=== PATIENT | female | born 1940 | race Caucasian/White ===

== ENCOUNTER 2016-09-14 10:21 | Inpatient (IN) | payer MEDICARE, OTHER ==
[~2016-09-14] VITALS: Ht 162.6 cm; Wt 49.0 kg
--- NOTE | 2016-09-15 14:09 | CO ---
ADMIT: 09/14/2016 RM/LOC: 509 [facility] MR#: [id number] [address] [address] JESSENIA MCDOWELL [address] [place] [address] Consultation SEX: F AGE: 75 : 1940 DATE OF CONSULTATION: 09/14/2016 ATTENDING PHYSICIAN: Julian Malone CONSULTING PHYSICIAN: Zan Diggs MD CHIEF COMPLAINT: Left hip pain. HISTORY OF PRESENT ILLNESS: The patient is a 75-year-old white female, who fell the day when she was moving a chair for , she landed on her left side. She was brought in the emergency room complaining of left hip pain. X- rays showed a left displaced intertrochanteric hip fracture. Recently, the patient had been scheduled for removal of hardware from her right shoulder. This was scheduled to be done, I believe, in a week. PHYSICAL EXAMINATION: Shows the patient's left lower extremity is short and externally rotated. Pain in the groin with toggling of the lower extremity on that side. It appears intact. She is not having really much pain at all. No right lower extremity pain or bilateral upper extremity pain. She does have a well-healed incision over the lateral shoulder. I can palpate the hardware which feel like Candelario rods. IMAGING DATA: X-rays show a displaced intertrochanteric hip fracture with osteoporosis. ASSESSMENT: Left intertrochanteric hip fracture and right shoulder retained hardware. At this point in time, we will plan left hip trochanteric femoral nailing and right shoulder hardware removal. I will look at her x-rays in the office to determine what hardware needs to be removed. She understands this, she understands the risks and benefits of the surgical intervention and desires to proceed. Zan Diggs MD/ sarah JOB #: [id number] CC: Julian Malone, Attending Physician Julian Malone, Family Physician
--- NOTE | 2016-09-17 16:31 | ER ---
ADMIT: 09/14/2016 RM/LOC: 509 [facility] MR#: [id number] [address] [address] JESSENIA MCDOWELL [address] [place] [address] Emergency Room Report SEX: F AGE: 75 : 1940 DATE: 09/14/2016 For chief complaint, history of present illness, past medical history, medications, allergies, review of systems, including physical exam, please my T-sheet. INTERIM HISTORY: The patient is a 75-year-old white female, who presents via 911 after mechanical fall at home. She tripped while she was moving a chair to help her get his a walker by this morning and landed directly on her left hip. She denies any other injuries. The patient has a longstanding history of coagulopathy with multiple stents placed both including her carotids, her femorals, and she has been anticoagulated on Plavix. She is scheduled for a shoulder surgery next week by Dr. Mcghee to get some pins removed, so she has coincidently been off her Plavix for the last week. She does smoke at home, approximately 2 cigarettes a day. She has a longstanding history of COPD. Otherwise, she is not oxygen dependent at home. PHYSICAL EXAMINATION: CONSTITUTIONAL: Otherwise, her constitutional is thin, frail, elderly. VITAL SIGNS: Vital signs are stable. LUNGS: Diminished. There is some faint wheezes throughout, which I believe are probably chronic for her. ABDOMEN: Thin. EXTREMITIES: She has a shortened and externally rotated left hip with pain to palpation. No other injuries. LABORATORY AND IMAGING DATA: Laboratory evaluation is pending with routine preoperative stuff. Hip does show a left intertrochanteric fracture with approximately 90 degrees of angulation. Chest x-ray pending. EKG is pending. Routine labs are pending. The patient did receive morphine en-route by EMS, and reported that she is kind of pain free as long she does not move. I spoke with Dr. Goodrich who is on-call for Dr. Malone, who gave medicine orders. We will have Cardiology to clear her for surgery. I spoke with Dr. Diggs who is on for Ortho and he will plan to repair this tomorrow after she has been ADMIT: 09/14/2016 RM/LOC: 509 [facility] MR#: [id number] [address] [address] JESSENIA MCDOWELL [address] [place] [address] Emergency Room Report SEX: F AGE: 75 : 1940 cleared. IMPRESSION: 1. Left hip fracture intertrochanteric with approximately 90 degrees of angulation. 2. Mechanical fall. 3. Longstanding history of chronic obstructive pulmonary disease for which she is oxygen at 2 L to keep her sats greater than 90%. CONDITION ON ADMISSION: The patient is in stable condition at admission. CODE STATUS: Not addressed. BOB Basurto / Denny Collier MD / sarah JOB #: [id number] CC: Julian Malone MD, Attending Physician Julian Malone MD, Family Physician
[2016-09-19] MEDS ORDERED: LOVENOX40 MG/0.4 SQ (14:21)
[2016-09-19] MEDS ORDERED: ATIVAN-DPS0.5 MG PO (14:22)
[2016-09-19] MEDS ORDERED: MILK OF MAGNESI10 ML PO (14:23)
[2016-09-19] MEDS ORDERED: HABITROL TD (14:24)
--- NOTE | 2016-09-22 14:12 | OR ---
ADMIT: 09/14/2016 RM/LOC: 509 [facility] MR#: [id number] [address] [address] JESSENIA MCDOWELL [address] [place] [address] Operative/Delivery Room Report SEX: F AGE: 75 : 1940 SURGERY DATE: 09/15/2016 SURGEON: Zan Diggs MD PREOPERATIVE DIAGNOSIS: Left comminuted intertrochanteric hip fracture and right shoulder retained hardware being 2 amin rods. POSTOPERATIVE DIAGNOSIS: Left comminuted intertrochanteric hip fracture and right shoulder retained hardware being 2 amin rods. PROCEDURE PERFORMED: Left hip trochanteric femoral nailing and right shoulder hardware removal of the two amin rods. CLOTH BLEACHING RANGE BACK TENDER: Giuseppe Lyn PA-C. ANESTHESIA: General. ESTIMATED BLOOD LOSS: Approximately 50 mL for the hip and minimal for the right shoulder. COMPLICATIONS: None. DRAINS: None. TOURNIQUET TIME: None. CONDITION ON DISCHARGE: The patient returned to the recovery room in guarded condition mainly due to medical status. INDICATIONS: The patient is status post right shoulder Amin rodding. She was scheduled for removal of amin rods next week, but in the interim here, she fell and sustained a comminuted intertrochanteric hip fracture. She desired left hip trochanteric femoral nailing and hardware removal at the same time. She understood the risks and benefits of procedure and desired to proceed with the operation. PROCEDURE IN DETAIL: The patient was taken to the OR, underwent general anesthesia, transferred to the traction table with well-padded perineal post placed between her legs. The left foot and ankle placed in a well-padded traction boot. Left hip was then reduced into excellent alignment under C-arm guidance. The left hip was prepped and draped in the usual sterile fashion. I made an incision over the greater trochanter and carried proximal for 3 inches through the skin and subcutaneous tissue with the skin knife. The abductor fascia was split in line with the skin incision using a Bovie. The abductor musculature was split in line with its fibers bluntly using a finger. I placed a guidewire from the tip of the greater trochanter across the fracture into the femoral shaft. This was viewed under C-arm guidance on AP and lateral views. I then over reamed the guidewire with a 17 mm reamer and then placed a short 12 mm diameter trochanteric femoral nail over the ADMIT: 09/14/2016 RM/LOC: 509 [facility] MR#: [id number] [address] [address] JESSENIA MCDOWELL [address] [place] [address] Operative/Delivery Room Report SEX: F AGE: 75 : 1940 guidewire. This was 130 degree angled one. I removed the guidewire and then made a 3-inch incision over the lateral thigh through the skin and subcutaneous tissue. IT band vastus lateralis with a knife and Bovie and then split the vastus lateralis in line with its fibers with the kang elevator. Using the outrigger on the TFN, I placed a guide tube along the lateral femoral cortex in the distal incision. The greater tuberosity fracture could be felt down in this area also. I then placed a guidewire through the guide tube across the lateral femoral cortex into the center of the femoral head on lateral view and slightly inferior to the center on AP view to try to get the better calcar bone. When this was in good alignment, I over reamed the outer cortex and then placed the TFN blade over the guidewire. I then locked into position and then removed the guidewire. Using the outrigger, I placed a triple trocar through the hole for the distal interlocking screw and placed it up against the lateral femoral cortex. I drilled across the femur, measured and then placed a distal interlocking screw. This was all visualized under C- arm guidance on AP and lateral views noted to be in excellent alignment. Wound was then thoroughly irrigated with bacitracin solution after I removed the outrigger. The blade had already been locked in place, so I closed the distal fascia and the proximal fascia using #1 Vicryl subcutaneous tissue before both wounds closed using 2-0 Vicryl. Skin closed using neno. Wounds were washed, dried, dressed with sterile Adaptic, 4 x 4's, ABD, and Medipore tape. Drapes were removed. The patient's right shoulder was then prepped and draped in the usual sterile fashion. I made a 2-inch incision through the previous incision with the skin knife through the skin and subcutaneous tissue. Deltoid was split in line with its fibers using a knife. I removed the scar tissue from the subacromial space, identified the two amin rods and then removed these with Kochers. I then thoroughly irrigated this area out with bacitracin solution and I closed the deltoid using #1 Vicryl. Subcutaneous tissue was closed using 2-0 Vicryl and skin closed using neno. Wounds were washed, dried, and dressed with sterile Mepilex tape. Drapes were removed. The patient was reversed from general anesthesia, transferred back to recovery room in guarded condition due to medical status. Zan Diggs MD/ sarah JOB #: [id number] CC: Julian Malone, Attending Physician Julian Malone, Family Physician
--- NOTE | 2016-09-24 16:58 | CO ---
ADMIT: 09/14/2016 RM/LOC: 509 [facility] MR#: [id number] [address] [address] JULY JESSENIA Harman [address] [place] [address] Consultation SEX: F AGE: 75 : 1940 DATE OF CONSULTATION: 09/14/2016 ATTENDING PHYSICIAN: Julian Malone CONSULTING PHYSICIAN: Óscar Alcantara MD CHIEF COMPLAINT: Hip fracture and need for shoulder surgery. HISTORY OF PRESENT ILLNESS: The patient is a 75-year-old female, who is well known to us with a previous history of coronary artery disease and multiple stents. She had shoulder surgery back in July and was in need for removal of some hardware. 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 This caused her to fracture her left hip and now she is undergoing surgery of both her hip as well as the right shoulder tomorrow. She states prior to this, she had been feeling well. She has had no recent trouble with any chest pain or chest tightness. She denies any significant shortness of breath or palpitations. She states that she is able to do her usual activities including laundry and going up and down stairs without any significant limitation. She had a stress test that was done in June which was significant for a very small territory of mild ischemia and was felt to be a reasonable risk for surgery at that time. She did well after that surgery. She has been tolerating her medicines well, but has been off Plavix recently in anticipation of removal of her right shoulder hardware. She had no other complaints. PAST MEDICAL HISTORY: Significant for: 1. Coronary artery stent placement in her LAD in 1995, in her RCA in 2003, and another one in 2005 and 2010 also. 2. History of nonobstructive carotid disease. 3. Hyperlipidemia. 4. Hypertension. 5. Peripheral vascular disease. 6. History of smoking. 7. History of a left humerus fracture. 8. Glaucoma. 9. History of renal cell carcinoma, status post nephrectomy. 10.Rheumatoid arthritis. 11.COPD. 12.History of back surgery. 13.Hysterectomy. 14.Chronic headaches. 15.Osteoporosis. ALLERGIES AND INTOLERANCES: Include penicillin, beta-blockers which have caused bradycardia. She has also been intolerant of some calcium-channel blockers due to bradycardia. CURRENT HOME MEDICATIONS: 1. Crestor 20 mg daily. ADMIT: 09/14/2016 RM/LOC: 509 [facility] MR#: [id number] [address] [address] JESSENIA MCDOWELL [address] [place] [address] Consultation SEX: F AGE: 75 : 1940 2. Fish oil 1000 mg two capsules twice daily. 3. Garlic 1000 mg daily. 4. Hydrocodone/acetaminophen 5/325, one or two every 4 to 6 hours as needed. 5. Multivitamin daily. 6. Nitroglycerin as needed. 7. Norvasc 5 mg daily. 8. Plavix 75 mg daily, but has been on hold for recent upcoming surgery. 9. Tylenol arthritis 650 mg four times daily as needed. 10.Tylenol #3 every 6 hours as needed. 11.Xalatan 0.005% eye drops, one drop into the affected eye in the evening. FAMILY HISTORY: Significant for 2 sisters with coronary artery disease, a brother with coronary artery disease and myocardial infarction. SOCIAL HISTORY: The patient has significant history of smoking. She has no current alcohol use. She is and lives at home with her . REVIEW OF SYSTEMS: GENERAL: Denies fatigue, fever, chills, sweats, rash, or weight loss. EYES: Denies double vision, blurred vision, cataracts, or glaucoma. ENT: Denies hearing loss or problems with nose, mouth or throat. PULMONARY: She does have some shortness of breath due to COPD. GASTROINTESTINAL: Denies heartburn or difficulty swallowing. No change in bowel habits. Denies dark or bloody stools. No history of ulcers, hiatal hernia, or gallbladder or liver disease. GENITOURINARY: Denies dysuria, hematuria, nocturia, urinary tract infection, or kidney stones. Denies history of renal insufficiency or failure. MUSCULOSKELETAL: She has had some recent shoulder pain due to surgery. She has had recurrent hip pain due to her fall. ENDOCRINE: Denies history of thyroid dysfunction or diabetes. HEMATOLOGIC: Denies history of anemia, easy bruising, or cancer. NEUROLOGIC: Denies chronic headaches, dizziness, syncope, stroke, seizures or numbness or tingling. PSYCHIATRIC: Denies history of mental illness or feelings of depression. PHYSICAL EXAMINATION: VITAL SIGNS: Blood pressure was 179/78, heart rate 101, respirations 22, temperature 96.9 degrees Fahrenheit. SKIN: [place], warm and dry. EYES: Sclerae clear. No xanthelasmas. ENT: Oral mucosa is pink and moist. No jugular venous distention or carotid bruits. CHEST: Respirations are even and unlabored. Lungs having diminished breath sounds throughout. HEART: Regular rate and rhythm. Normal S1, S2. No murmurs, rubs or gallops. ABDOMEN: Soft and nontender. MUSCULOSKELETAL: Gait is normal. EXTREMITIES: Peripheral pulses palpable. No clubbing, cyanosis or edema. PSYCHIATRIC: Alert and oriented. Mood and affect are appropriate. ADMIT: 09/14/2016 RM/LOC: 509 [facility] MR#: [id number] [address] [place] [id number] JESSENIA MCDOWELL [address] [place] [address] Consultation SEX: F AGE: 75 : 1940 ASSESSMENT: 1. Hip fracture. 2. Need for shoulder surgery. 3. History of coronary artery disease. 4. Hypertension. 5. Chronic obstructive pulmonary disease. PLAN: At this point, the patient appears to be fairly stable from a cardiovascular standpoint. She had a stress test done at the end of June which showed a mild amount of ischemia over the distal inferior wall and apex being a very small territory. Because of the mild amount of ischemia over a small territory, it is felt that this is reasonably low risk for surgery. She is probably a moderate risk surgical candidate, however, due to her coronary artery disease and COPD. I do not see any medications or other treatment we can do prior to surgery that would make her a better candidate, so at this point, it would be okay to proceed. She has been off her Plavix for several days also. Would have her resume this after surgery. She will continue with her other risk factor treatment.. Óscar Alcantara MD/ sarah JOB #: [id number] CC: Julian Malone, Attending Physician Julian Malone, Family Physician
--- NOTE | 2016-10-11 16:48 | HP ---
ADMIT: 09/14/2016 RM/LOC: 509 [facility] MR#: [id number] [address] [address] JESSENIA MCDOWELL [address] [place] [address] History and Physical SEX: F AGE: 75 : 1940 DATE OF SERVICE: CHIEF COMPLAINT: Left hip pain. HISTORY OF PRESENT ILLNESS: This is a very pleasant 75-year-old white female, normally cared for by Dr. Julian Malone in our office, who presented to the emergency room with left hip pain. They were getting the income taxes completed today, and she was trying to move a chair out of her 's way who uses a walker. Unfortunately, she caught her foot and stumbled. She tripped and she fell on her left hip and subsequently ended up with a left hip fracture, so she is admitted for further workup and stabilization. She denies any recent chest pains. There have been no fevers. No chills. No cough. No congestion, nothing out of the ordinary. She did have a recent abnormal Cardiolite stress test which showed mild area of ischemia, so we did have [facility] consulted. They deemed her to be a moderate risk, but they did not feel that there was anything else that they could offer to lessen her risk for surgery and therefore they have cleared her for surgery tomorrow. Currently, her pain is well controlled. 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 PAST SURGICAL HISTORY: Surgeries include stent placement, right nephrectomy for cancer, HAYDEE with BSO, lumbar laminectomy, bilateral cataract surgery, humerus fracture with ORIF and was scheduled to undergo hardware removal next week. CURRENT MEDICATIONS: Include latanoprost 0.005% one drop at bedtime, amlodipine 5 mg at bedtime, Plavix 75 mg daily, rosuvastatin 20 mg at bedtime, Tylenol with codeine q.4 hours p.r.n., multivitamin at bedtime, Tylenol Arthritis 650 mg q.4 hours p.r.n., and NicoDerm patch 14 mcg q.24 hours. ALLERGIES: PENICILLIN. FAMILY HISTORY: Father had coronary artery disease and throat cancer. Mother had a "rare blood disease" and a history of rheumatoid arthritis. SOCIAL HISTORY: She does smoke 2 cigarettes per day. Occasional alcohol use, but nothing regular. She is retired. Lives at home with her . REVIEW OF SYSTEMS: GENERAL: No fevers or chills. HEENT: No headaches, blurry vision, or double vision. CARDIAC: No chest pains. PULMONARY: No shortness of breath. GI: No nausea, vomiting, or diarrhea. : No dysuria, urgency, or frequency. ADMIT: 09/14/2016 RM/LOC: 509 [facility] MR#: [id number] [address] [place] [id number] JESSENIA MCDOWELL [address] [place] [address] History and Physical SEX: F AGE: 75 : 1940 ENDOCRINE: No polyuria or polydipsia. PSYCH: No depression. All others are negative. PHYSICAL EXAMINATION: VITAL SIGNS: Blood pressure 179/78, pulse 101, respirations 22, temperature is 96.9. GENERAL: She is in no acute distress. She is alert. She is interactive and oriented. HEENT: Pupils are reactive. Conjunctivae are clear. Clear oropharynx. Moist mucous membranes. NECK: Soft and supple. LUNGS: With decreased breath sounds. Normal to percussion. HEART: Regular rate and rhythm. ABDOMEN: Soft. It is nontender. EXTREMITIES: No cyanosis. No clubbing. No edema. SKIN: No rashes. NEUROLOGIC: Cranial nerves II through XII are grossly intact. No focal deficits. LAB AND X-RAY DATA: Shows a white count of 12,800, hemoglobin 12.7, platelets 217,000. INR is less than 1. Sodium 139, potassium 3.8, chloride 101, CO2 of 32, BUN 10, creatinine 0.7, glucose 92, calcium 8.3, total bilirubin is 0.4, total protein 6.7, albumin 3.3, alkaline phosphatase is 103, AST 18, ALT 13. UA was negative. ASSESSMENT: 1. Left hip fracture. 2. Coronary artery disease. 3. Chronic obstructive pulmonary disease. 4. Hypertension. 5. Anemia of chronic disease. PLAN: We will admit. Ortho has been consulted. [facility] has already cleared her for surgery with moderate risk of anesthesia. She requests a sleeping pill and nicotine patch. Does have problems with anxiety. We will maintain her oxygen supplementation and follow along in the perioperative period. Andrey Goodrich MD/ sarah JOB #: [id number] CC: Julian Malone, Attending Physician Julian Maloen, Family Physician
--- NOTE | 2016-10-29 10:17 | DS ---
ADMIT: 09/14/2016 RM/LOC: 509 [facility] MR#: [id number] [address] [address] [place] [address] General Discharge Summary SEX: F AGE: 75 : 1940 ADMISSION DATE: 09/14/2016 DISCHARGE DATE: 09/18/2016 CONSULTING PHYSICIANS: Zan Diggs MD, Orthopedics Óscar Alcantara, Cardiology ADMITTING DIAGNOSIS: As per history and physical. FINAL DIAGNOSES: As follows: 1. Intertrochanteric fracture of the left hip, status post ORIF. 2. Chronic obstructive pulmonary disease. 3. Atherosclerotic coronary vascular disease. 4. Postmenopausal osteoporosis. 5. Fall on 09/14/2016. 6. Nicotine dependence/tobacco use disorder. 7. Atherosclerotic coronary vascular disease. 8. Hypertension. 9. Hyperlipidemia. 10.Carotid occlusive disease. 11.Peripheral vascular disease. 12.Anemia of chronic disease aggravated by acute blood loss. 13.Chronic gastroesophageal reflux disease/esophageal reflux. 14.Generalized osteoarthritis. 15.History of renal cell carcinoma, status post nephrectomy. 16.Chronic kidney disease, stage II. 17.Coronary artery disease, status post previous PTCA with stents. 18.Marked age-related debility. OPERATIONS: The patient had surgery on 09/16/2016. On 09/16/2016, she had open reduction and internal fixation of her fractured left hip. They also removed fixation hardware from her right humerus. CLINICAL HISTORY: The patient is a 75-year-old, white female, admitted to [facility] after presenting to the emergency room complaining of left hip pain. The patient fell while she was out getting her income taxes done. She tripped on a chair leg injuring her left hip. X-rays in the ER confirmed an intertrochanteric fracture of the left hip. The patient was admitted for orthopedic consultation and planned open reduction and internal fixation of her fractured left hip. For details of her clinical history as well as her past medical history and physical exam findings, please see dictated history and physical. Please also see dictated orthopedic consult and dictated Cardiology consult. LABORATORY AND X-RAY SUMMARY FROM THIS ADMISSION: Her initial CBC showed a white count of 12,800, hemoglobin 12.7, hematocrit 40. Platelets were normal at 217,000. On her second hospital day, white count was 9600, hemoglobin was 11.9. Postoperatively, on 09/16/2016, her hemoglobin dropped to 10. It dropped further to 8.2 on her second postoperative day. At discharge, white count was 11,200, hemoglobin 8.3, hematocrit 26.0. Her baseline protime and PTT on ADMIT: 09/14/2016 RM/LOC: 509 [facility] MR#: [id number] [address] [address] [place] [address] General Discharge Summary SEX: F AGE: 75 : 1940 admission were normal. Urinalysis on admission was clear. Her chemistry studies on admission showed a sodium of 139, potassium 3.8. Her BUN was 10, creatinine was 0.7. On her second hospital day, BUN was 9, creatinine was 0.7. Electrolytes were normal. Her calculated GFR ranged from 50 to 73 during this hospital stay. At discharge, her sodium was 133, potassium 4.1, BUN was 14, creatinine was 0.8. Cardiac enzymes on admission were normal. Her blood type was noted to be B negative with negative antibody screen. X-ray studies included x-rays in the ER of her hip and pelvis. This showed diffuse osteoporotic changes with left femoral intertrochanteric fracture with some degree of displacement. Her chest x-ray showed changes of COPD but no acute infiltrates. Postoperative chest x-ray showed no evidence of pneumonia. Her EKG showed normal sinus rhythm with some lateral ST-T wave changes suggestive of myocardial ischemia. Serial EKG showed no change. HOSPITAL COURSE: The patient was admitted and Orthopedics was consulted. Dr. Diggs saw her in consultation. Because of her severe cardiopulmonary disease, we did get preoperative Cardiology consult. Dr. Alcantara saw her in consultation and felt that she was medically stable enough to proceed with surgery. The patient was taken to the OR on 09/15/2016. She did have open reduction and internal fixation of her fractured left hip. She also had removal of the hardware from a recent open reduction and internal fixation of her right shoulder. The patient had two Candelario rods removed from her right shoulder. She had a transfemoral nailing of her left hip fracture. Postoperatively, she did remarkably well considering her baseline cardiopulmonary status. She did have significant postop anemia due to acute blood loss superimposed on her anemia of chronic disease. She had no acute medical issues. Her pain was reasonably well controlled. On her third postoperative day, she was transferred to a shelter unit bed at [facility] [place] where she will receive PT/OT and speech therapy. She will follow up in our office in 7 to 10 days for a postop check. She is going to reside at the retirement until she is able to ambulate independently. She is to be limited weightbearing on her left hip for the next 6 weeks. She will continue to follow with Dr. Diggs. DISCHARGE MEDICATIONS: Her medications at dismissal were to include: 1. Crestor 20 mg daily. 2. Norvasc 5 mg at bedtime. 3. Plavix 75 mg daily. 4. Senokot-S 1 b.i.d. 5. Multivitamin 1 daily. 6. DuoNeb via twin jet nebulizer q.i.d. 7. Xalatan ophthalmic drops 1 drop both eyes at bedtime. 8. Lovenox 40 mg subcutaneous once daily for four weeks for DVT prophylaxis. 9. Ativan 0.5 mg one tablet every 6 hours for anxiety. ADMIT: 09/14/2016 RM/LOC: 509 [facility] MR#: [id number] [address] [facility] [address] [place] [address] JESSENIA MCDOWELL [facility] [place] [address] General Discharge Summary SEX: F AGE: 75 : 1940 10.Hydrocodone 5 mg, one or two every 4 hours p.r.n. pain. 11.Maalox p.r.n. indigestion. 12.Milk of magnesia p.r.n. constipation. 13.Dulcolax suppository p.r.n. constipation. 14.Nitrostat sublingual p.r.n., anginal-type chest pain. 15.Habitrol 14 mg patch, on in the a.m. and off at bedtime to aid with smoking cessation. CONDITION AT DISCHARGE: Stable and improved. PROGNOSIS: Long-term prognosis is somewhat poor in view of the severity of her cardiopulmonary disease. Julian Malone MD/ sarah JOB #: [id number] CC: Julian Malone MD, Attending Physician Julian Malone MD, Family Physician
[2017-04-02] MEDS ORDERED: DUONEB DPS3 ML IH (08:56)
[2017-04-02] MEDS ORDERED: DULCOLAX-DPS10 MG PR ×2 (08:56→09:04)
[2017-04-02] MEDS ORDERED: CRESTOR10 MG PO (08:56)
[2017-04-02] MEDS ORDERED: HYDROCODON-ACE1 EAC4 PO (08:56)
[2017-04-02] MEDS ORDERED: ATIVAN-DPS1 MG PO (08:56)
[2017-04-02] MEDS ORDERED: MILK OF MA400 MG/5 M PO (08:57)
[2017-04-02] MEDS ORDERED: NITROSTAT0.4 MG SL (08:57)
[2017-04-02] MEDS ORDERED: MAALOX DPS30 ML PO (08:57)
[2017-04-02] MEDS ORDERED: THERAPEUTIC MUL1 TAB PO (08:58)
[2017-04-02] MEDS ORDERED: SENOKOT-S TABL1 EACH PO (08:58)
[2017-04-02] MEDS ORDERED: PLAVIX75 MG PO (08:58)
[2017-04-02] MEDS ORDERED: TYLENOL DPS325 MG PO (08:59)
[2017-04-02] MEDS ORDERED: XALATAN2.5 ML OU (08:59)
[2017-04-02] MEDS ORDERED: ULTRAM DPS50 MG PO (08:59)
[2017-04-02] MEDS ORDERED: IRON325 M1 PO (09:00)
[2017-04-02] MEDS ORDERED: NORVASC5 MG PO (09:00)
[2017-04-02] MEDS ORDERED: ZINC50 M1 PO (09:00)
[2017-04-02] MEDS ORDERED: LEVAQUIN DPS500 MG PO (09:01)
[2017-04-02] MEDS ORDERED: TYLENOL WITH C1 EACH PO (09:01)
[2017-04-02] MEDS ORDERED: PEPCID DPS20 MG PO (09:02)
[2017-04-02] MEDS ORDERED: LOVENOX DP30 MG/0.3 SQ (09:03)
[2017-04-02] MEDS ORDERED: COLACE-DPS100 MG PO (09:03)
[2017-04-02] MEDS ORDERED: FLEET ENEMA133 ML PR (09:04)
== END 2016-09-18 14:40 | DRG 481 ==
LOC: ER 10:21 → 5MS 11:30
PROVIDERS: ADMIT Family Medicine
DX: S72.142A Displaced intertrochanteric fracture of left femur, initial encounter for closed fracture (principal); D68.9 Coagulation defect, unspecified; J44.9 Chronic obstructive pulmonary disease, unspecified; F17.210 Nicotine dependence, cigarettes, uncomplicated; W19.XXXA Unspecified fall, initial encounter; I25.10 Atherosclerotic heart disease of native coronary artery without angina pectoris; N18.2 Chronic kidney disease, stage 2 (mild); I12.9 Hypertensive chronic kidney disease with stage 1 through stage 4 chronic kidney disease, or unspecified chronic kidney disease; E78.5 Hyperlipidemia, unspecified; I65.23 Occlusion and stenosis of bilateral carotid arteries; M81.0 Age-related osteoporosis without current pathological fracture; I73.9 Peripheral vascular disease, unspecified; D63.8 Anemia in other chronic diseases classified elsewhere; H40.9 Unspecified glaucoma; K21.9 Gastro-esophageal reflux disease without esophagitis; M19.90 Unspecified osteoarthritis, unspecified site; Z85.528 Personal history of other malignant neoplasm of kidney; Z90.5 Acquired absence of kidney; Z82.49 Family history of ischemic heart disease and other diseases of the circulatory system; Z79.01 Long term (current) use of anticoagulants; Z95.828 Presence of other vascular implants and grafts; Z95.5 Presence of coronary angioplasty implant and graft

== ENCOUNTER 2017-03-26 01:20 | Inpatient (IN) | payer MEDICARE, OTHER ==
[~2017-03-26] VITALS: Ht 162.6 cm; Wt 56.1 kg
--- NOTE | ~2017-03-26 | WND ---
ADMIT: 03/26/2017 RM/LOC: 531 [facility] MR#: [id number] [address] [address] JESSENIA MCDOWELL [address] [place] [address] Wound Care Clinic SEX: F AGE: 76 : 1940 DATE OF VISIT: 03/30/2017 TIME IN: 9:50. TIME OUT: 10:10. REASON FOR VISIT: Evaluation and treatment of multiple skin concerns. This is a patient of Dr. Malone. HISTORY OF PRESENT ILLNESS: This is a 76-year-old female, who was seen in the emergency room on 03/26/2017, after she was brought in by EMS following a fall at home. She had gone outside to let her dog out and tripped on the deck falling on her right hip. She was unable to get up secondary to pain in her hip. She is noted to have a right hip fracture. She was seen by Dr. Mcghee, who took her to surgery on 03/26/2017 for a right hip trochanteric fixation nail. She had sustained skin tears in her fall and was noted to have a pressure ulceration. Therefore, Wound Care saw her for the first time on 03/26/2017, where she was diagnosed with a stage II pressure ulceration of the coccyx, category 3 skin tears x3 to right lower extremity, and her elbows and reactive hyperemia at her coccyx and bilateral heels. Wound Care presents today for further evaluation and treatment. PAST MEDICAL HISTORY: 1. September of 2016, open reduction and internal fixation of left hip. 2. July 21, open reduction and internal fixation of fractured right humerus. 3. 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 4. Multiple heart catheterizations. 5. Cardiac stenting. 6. Total abdominal hysterectomy bilateral salpingo-oophorectomy at age 31. 7. Back surgeries. 8. Lumbar laminectomy. 9. Jnktszsp-xo-qysghc COPD. 10.Atherosclerotic coronary artery disease. 11.Hypertension. 12.Hyperlipidemia. 13.Bilateral carotid occlusive disease. 14.Osteoporosis. 15.Peripheral vascular disease. 16.Anemia of chronic disease. 17.Chronic gastroesophageal reflux disease. 18.Degenerative joint disease. 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 ALLERGIES: To penicillin. CURRENT MEDICATIONS: Per the MAR. Please see the MAR for further details: 1. Crestor. ADMIT: 03/26/2017 RM/LOC: 531 [facility] MR#: [id number] [address] [address] JESSENIA MCDOWELL [address] [place] [address] Wound Care Clinic SEX: F AGE: 76 : 1940 2. Feosol. 3. Milk of magnesia. 4. Norvasc. 5. Pepcid. 6. Senokot. 7. Therapeutic multivitamins. 8. Xalatan. 9. Lovenox. 10.Merrem. P.R.N. medications: 1. Ativan. 2. Benadryl. 3. Colace. 4. Compazine. 5. Hydrocodone/acetaminophen. 6. Maalox. 7. Milk of magnesia. 8. Tylenol. 9. Ultram. 10.DuoNeb. 11.Dulcolax. 12.Fleets enema. 13.Tylenol. 14.Benadryl. 15.Morphine. SOCIAL HISTORY: She is a long-term smoker, smoking 1 to 2 cigarettes per day. Social drinker with occasional beer or glass of wine. No illicit drug use. She is retired. She lives in family home with her , who has dementia, and she is the primary caregiver for her . FAMILY HISTORY: Noted to be negative. REVIEW OF SYSTEMS: She is examined in her hospital room, where she is awake, alert, and oriented x3. She denies any fever or chills. No nausea or vomiting. Her appetite is good. She states she has a slight cough and she feels some postnasal drip, but no chest pain. She denies any pain in her bottom, rates the pain in her right hip as a 7. PHYSICAL EXAMINATION: VITAL SIGNS: 96.9, 92, 14, blood pressure 117/73, and O2 sats on room air is 91%. Focused exam to her right elbow showed that it is healed with just a small crust remaining that is 0.2 x 0.3 cm. No surrounding erythema or induration. Focused exam to the sacral, coccyx, and buttocks area shows that on her rectal area, near the right buttock, is a deep purple area that measures 3 cm x 2.5 cm that does not ron. On her coccyx of the wound and in total length, is 1.5 x 1.2 with a depth of 0.1 cm. However, there is lots of new ADMIT: 03/26/2017 RM/LOC: 531 [facility] MR#: [id number] [facility] [address] [address] JESSENIA MCDOWELL [address] [place] [address] Wound Care Clinic SEX: F AGE: 76 : 1940 epithelialization occurring at the distal edge. The visible wound base is pink. To her left buttock, is an area that measures 1.5 x 2 cm with non blanchable red area. To her right foot on the dorsal surface, is some small crust. To the right lower extremity, there are three areas of superficial denudement, one that measures 1 cm x 0.8 cm with a depth of 0.1 cm. More lateral and distal, is one that measures 2.5 x 3.5 with a depth of 0.1 cm and more medial, 4.7 x 2.6 with a depth of 0.1 cm. These all have a pink wound base with small amount of serous drainage. To her left lower extremity, is a large bruising on the medial side that measures 17 cm x 4 cm. ASSESSMENT: 1. Healing stage II pressure ulceration to coccyx. 2. Stage I pressure ulceration, left buttocks. 3. Suspected deep tissue injury, right buttock. 4. Healing category 3 skin tears, right lower extremity. TREATMENT AND PLAN: We will continue with the low air loss mattress. Sensi- Care 4 times a day and p.r.n. to the coccyx area. Heels floated off all cyst surfaces. Repositioned every 2 hours. She also had the right lower extremity skin tear areas were washed well with warm soapy water, rinsed, and patted dry. Mepilex border was placed over it and this will be changed twice weekly. She continues to be a high risk for skin breakdown due to the fact that she has a very thin body habitus. Thank you for this referral. Marion Chaudhari APRN/ sarah JOB #: [id number] CC: Julian Malone, Attending Physician Julian Malone, Family Physician
--- NOTE | ~2017-03-26 | CO ---
ADMIT: 03/26/2017 RM/LOC: 531 [facility] MR#: [id number] [address] [address] JESSENIA MCDOWELL [address] [place] [address] Consultation Report SEX: F AGE: 76 : 1940 Correction: 04/05/2017 0850 djs DATE OF CONSULTATION: 03/26/2017 ATTENDING PHYSICIAN: Julian Malone CONSULTING PHYSICIAN: Anthony Mcghee MD REASON FOR CONSULTATION: Right hip fracture. HISTORY OF PRESENT ILLNESS: The patient is a pleasant 76-year-old female, who is well known to our service. She fell last night, injuring her right hip. She was seen in the Emergency Department and was found to have an intertrochanteric hip fracture, was admitted, and we were consulted to see the patient for definitive evaluation and care of her hip fracture. The patient denies any other injuries during the fall other than the skin tear on her forearm. PAST MEDICAL HISTORY: Significant for chronic obstructive pulmonary disease, coronary artery disease, osteoporosis, hypertension, hyperlipidemia, carotid occlusive disease, peripheral vascular disease, anemia, gastroesophageal reflux disease, history of renal cell carcinoma status post nephrectomy, chronic kidney disease stage II. MEDICATIONS: Please see the medication list. ALLERGIES AND INTOLERANCES: Include penicillin, beta-blockers, and calcium channel blockers. SOCIAL HISTORY: Has a significant history of smoking and no current alcohol use. Lives at home. REVIEW OF SYSTEMS: As per Dr. Malone's history and physical. PHYSICAL EXAMINATION: HEENT, heart, lungs, and abdomen as per Dr. Malone's evaluation. EXTREMITIES: Examination of the right hip, does have some shortening on external rotation here. Pain with any attempted range of motion of the hip. She will wiggle her toes. She does have some fair amount of edema in both of her feet today. She appears to be otherwise distally neurovascularly intact. IMAGING: X-rays of the right hip show a displaced intertrochanteric fracture, significant osteoporosis. ASSESSMENT: Right hip intertrochanteric fracture in a patient with ADMIT: 03/26/2017 RM/LOC: 531 [facility] MR#: [id number] [address] [address] JESSENIA MCDOWELL [address] [place] [address] Consultation Report SEX: F AGE: 76 : 1940 significant osteoporosis. PLAN: At this point, we discussed her injury as well as treatment options today. She does wish to proceed with fixation of her hip fracture. We talked about using a trochanteric fixation nail. We discussed the procedure as well as risks and benefits with her. Primary care and anesthesia discussed the anesthetic risk with her as well. When she is medically cleared, we will plan on doing a right hip trochanteric fixation nail to repair her fracture. After discussing the risks and benefits with her, she does agree to proceed. Anthony Mcghee MD/ sarah JOB #: [id number] CC: Julian Malone, Attending Physician Julian Malone, Family Physician Correction: 04/05/2017 0850 max
[~2017-03-26 01:20] MED LIST: ATIVAN-DPS0.5 MG PO; HABITROL TD; LOVENOX40 MG/0.4 SQ; MILK OF MAGNESI10 ML PO
--- NOTE | 2017-03-26 18:55 | HP ---
ADMIT: 03/26/2017 RM/LOC: 521 [facility] MR#: [id number] [address] [address] JESSENIA MCDOWELL [address] [place] [address] History and Physical SEX: F AGE: 76 : 1940 DATE OF SERVICE: CHIEF COMPLAINT: Right hip pain. CLINICAL HISTORY: The patient is a very frail 76-year-old white female, who is admitted to [facility] early on the morning of 03/26/2017, after being seen in the ER, brought to the ER by family because she was having severe pain in her right hip and was unable to bear weight on her right leg. The patient had gone out to take the dog for a walk at about 10:30 p.m. on 03/25/2017, she stumbled as she was going down the steps and fell, hitting or landing on her right hip. She had immediate onset of pain and was unable to get up on her own. Her neighbor came over and helped her back into the house. She did not want to go to the hospital, so she did not tell anyone at first, but when the pain became severe and she could get up to go the bathroom at 1:00 a.m., she contacted a niece, who then brought her to the emergency room. She was evaluated in the ER at approximately 1:30 a.m. on 03/26/2017, where x-ray show a right intertrochanteric hip fracture. It should be noted that the patient does have a history of significant osteoporosis, has had 2 previous falls this year with fracture. The patient fell in late June of 2016, and had a right humeral fracture that required open reduction and internal fixation. In September of 2016, she tripped and fell and suffered a left intertrochanteric hip fracture. She is admitted at this time for further Orthopedic consultation and planned open reduction and internal fixation of this right hip fracture. Fortunately, she suffered no other injuries at the time of this fall. As noted, she fell at home at approximately 10:30 p.m. on 03/25/2017. PAST MEDICAL HISTORY: The patient was most recently hospitalized in September of 2016, hospitalized at that time for open reduction and internal fixation of her left hip; prior to that, she had been hospitalized in July of 2016, for open reduction and internal fixation of her fractured right humerus. She has had no other recent hospitalizations. Prior to her surgery in July of 2016, the patient did have an echocardiogram and a nuclear medicine stress test for cardiac clearance prior to that surgery; at that time, she had a negative stress test and her EF was noted to be normal. 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 The patient has actually done well following that nephrectomy and has maintained fairly normal renal functions with her unilateral left kidney. Other surgical procedures include multiple heart catheterizations. She had cardiac stenting most recently in February of 2011. She has had other heart caths and stents prior to that. She did have a TAHBSO at approximately age 31. She also has had previous back surgery for herniated disk including a lumbar laminectomy. She did tolerate her orthopedic procedures on her right humerus and left hip relatively well, given her advanced age and significant cardiopulmonary disease. Her medical problems are noted to include: 1. Bbzrgjmv-qi-kyovhc COPD. 2. Atherosclerotic coronary vascular disease. ADMIT: 03/26/2017 RM/LOC: 521 [facility] MR#: [id number] [address] [address] JESSENIA MCDOWELL [address] [place] [address] History and Physical SEX: F AGE: 76 : 1940 3. Hypertension. 4. Hyperlipidemia. 5. Bilateral carotid occlusive disease. 6. Osteoporosis. 7. Peripheral vascular disease. 8. Anemia of chronic disease. 9. Chronic gastroesophageal reflux disease. 10.Generalized degenerative joint disease. 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 MEDICATIONS: Her current medications include the followin. Ativan 1 mg, 1/2 to 1 tablet every 6 hours p.r.n. anxiety. 2. Dulcolax suppository p.r.n. 3. Crestor 20 mg at bedtime. 4. DuoNeb via Twin Jet nebulizer q.i.d. p.r.n. 5. Lortab 5/325, 1 every 4 hours for pain. 6. Maalox 30 mL p.r.n. indigestion. 7. Milk of magnesia p.r.n. constipation. 8. Nitrostat sublingual p.r.n. chest pain; none taken recently. 9. Plavix 75 mg daily. 10.Senokot 1 b.i.d. for constipation. 11.Multivitamin 1 daily. 12.Tylenol Arthritis strength 2 tablets b.i.d. 13.Tramadol 50 mg, 1 or 2 every 6 hours for pain. 14.Latanoprost ophthalmic drops, 1 drop both eyes at bedtime. 15.Zinc 50 mg daily. 16.Iron 325 mg daily. 17.Tylenol with codeine 1 every 4 hours p.r.n. pain. 18.Pepcid 20 mg b.i.d. 19.Norvasc 5 mg daily. ALLERGIES: SHE IS ALLERGIC TO PENICILLIN. SOCIAL HISTORY: The patient is a long-term smoker. She continues to smoke, but tries to limit herself to only 1 or 2 cigarettes per day at this time. Does have history of phxbnxgj-ot-ocvlvt COPD. The patient is noted to be a social drinker, will occasionally have a beer or glass of wine. No history of illicit drug use. She is retired. She still lives in the family home with her who has significant dementia. She is the primary caregiver for her . FAMILY HISTORY: Negative for any other familial related health problems. As noted, her does have significant vascular dementia. REVIEW OF SYSTEMS: CONSTITUTIONAL: She has had no fever or chills. She notes her appetite has been poor. Do note, she has had a 10-pound weight loss since she was hospitalized in September. HEENT: No upper respiratory congestion. No recent vision or hearing change. ADMIT: 03/26/2017 RM/LOC: 521 [facility] MR#: [id number] [address] [address] JESSENIA MCDOWELL [address] [place] [address] History and Physical SEX: F AGE: 76 : 1940 No swallowing difficulties. PULMONARY: Significant dyspnea on exertion. Significant COPD, related to her long-term tobacco use. The patient has smoked since her teens. She denies any hemoptysis or pleuritic chest pain. She is supposed to be using O2 at night continuously, but has not been. CARDIAC: Extensive cardiac history, usually followed by [facility]iology. Did have negative nuclear medicine stress test in June 2016. An echocardiogram at that same time showed an EF of 55% to 60% with no significant valvulopathy or regional wall motion abnormalities. She has had angioplasty and stenting multiple times. She denies any recent angina or chest pain. GASTROINTESTINAL: History of chronic GERD, chronic gastritis. This is well- controlled with her Pepcid. No melena or hematemesis. Some ongoing difficulty with constipation. GENITOURINARY: History of previous urethral cell carcinoma of the kidney, status post nephrectomy. Renal function well preserved with her unilateral left kidney. She is having no flank pain. No dysuria. No incontinence. MUSCULOSKELETAL: Generalized arthritic discomfort. Chronic low back pain. Has had good result following her left hip fracture with no residual hip pain. Severe osteoporosis. NEUROLOGIC: No focal symptoms. No history of strokes, seizures, or TIAs. No headaches. PSYCHIATRIC: She denies any depression or chronic psychiatric issues. HEMATOLOGIC: Does have history of mild anemia. No previous history of blood clots. Remainder of her review of systems is negative. PHYSICAL EXAMINATION: VITAL SIGNS: At this time, her temp is 96.9, pulse 103, respirations 18, blood pressure 142/72, O2 saturation is 94% with oxygen at 2 L. Current weight 97 pounds. GENERAL: The patient is a very frail, debilitated, 76-year-old female, who appears significantly older than her stated age. She is in no acute distress, but is obviously uncomfortable from her hip pain. She is oriented x3. HEENT: Reveals her ears to be clear. Hearing grossly intact. Nose and throat are noninflamed. Oropharynx is normal. Pupils are equal and reactive. Sclerae nonicteric. Conjunctivae noninflamed. NECK: Supple. I cannot appreciate any carotid bruits. No neck vein distention. No cervical adenopathy. LUNGS: Diminished throughout with poor air exchange. Few upper airway rhonchi. No wheezes. No rales. No dullness to percussion. HEART: Has a regular rhythm. No murmurs. No evidence of failure. ABDOMEN: Soft. Somewhat protuberant. Nontender. Bowel sounds are normoactive. Does have a scar on her abdomen from her previous right nephrectomy. BREASTS: Not performed at this time. PELVIC: Not performed at this time. EXTREMITIES: She has limited mobility in her right shoulder. She has ADMIT: 03/26/2017 RM/LOC: 521 [facility] MR#: [id number] [address] [address] JESSENIA MCDOWELL [address] [place] [address] History and Physical SEX: F AGE: 76 : 1940 significant upper extremity weakness. Exam of her right lower extremity reveals external rotation and shortening of her right hip. Pain with any movement of her right lower extremity. She is noted to have 1+ pedal and ankle edema, 1+ pretibial edema bilaterally. No calf tenderness. She has numerous bruises and contusions on all 4 extremities. She has generalized arthritic changes involving all the major joints. NEUROLOGIC: She has no focal deficit. She has marked generalized weakness. The patient is unable to stand at this time because of her hip fracture. I can see no new focal deficits. MENTAL STATUS: She is pleasant and cooperative. Oriented x3. No significant cognitive impairment. No delusions. No hallucinations. No significant depressive symptoms. ASSESSMENT AT TIME OF ADMISSION: 1. Intertrochanteric fracture of the right hip. 2. Fall at home on the evening of 03/25/2017. 3. Severe osteoporosis. 4. History of left hip fracture in September of 2016. 5. Atherosclerotic coronary vascular disease, stable cardiac status. 6. Chronic obstructive pulmonary disease, severe. 7. Tobacco use disorder. 8. Hypertension. 9. Chronic kidney disease, stage 2. 10.Hyperlipidemia. 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 Clinically, no evidence of disease. 12.Carotid occlusive disease. 13.Chronic malnutrition. 14.Marked debility secondary to her pulmonary disease. 15.Mild chronic cerebrovascular insufficiency. PLAN: Plan is to admit the patient. Dr. Mcghee has already seen the patient with plans on taking her to the OR on the morning of 03/26/2017. I have asked Cardiology to see her as well. Do feel that she is medically stable and we can take her to the OR. Discussed this with her family. Discussed with the family that she will once again need [facility] for [facility]. Julian Malone MD/ sarah JOB #: [id number] CC: Julian Malone, Attending Physician Julian Malone, Family Physician
--- NOTE | 2017-03-27 01:13 | ER ---
ADMIT: 03/26/2017 RM/LOC: ER [facility] MR#: [id number] [address] [address] JESSENIA MCDOWELL [address] [place] [address] Emergency Room Report SEX: F AGE: 76 : 1940 DATE: 03/26/2017 ADDENDUM: HISTORY OF PRESENT ILLNESS: A 76-year-old female, who is brought in by EMS after she had a fall at home. She said she when outside to let her dog out and ended up tripping on the deck and fell onto her right hip. She was unable to get up secondary to pain in her right hip. She denies hitting her head or any other pain at this time. PHYSICAL EXAMINATION: MUSCULOSKELETAL: Her right leg is shortened and externally rotated. She has good pulses in that lower extremity and she has tenderness to palpation of her hip. She does have abrasion and a skin tear on her left forearm. Remainder of physical exam was unremarkable. LABORATORY AND IMAGING DATA: X-rays of the pelvis and right hip showed that she does have a right intertrochanteric hip fracture. Chest x-ray showed nothing acute, and the CBC showed a white count of 14.1 with chemistries pending. Her pain was controlled, and I spoke to Dr. Avalos, who will be admitting the patient as she normally sees Dr. Malone. I also notified Dr. Mcghee. DIAGNOSES: 1. Right intertrochanteric hip fracture. 2. Chronic obstructive pulmonary disease. Anthony Choudhury MD/ sarah JOB #: [id number] CC: Anthony Choudhury MD, Attending Physician Julian Malone MD, Family Physician
--- NOTE | 2017-04-01 11:12 | OR ---
ADMIT: 03/26/2017 RM/LOC: 306 [facility] MR#: [id number] [address] [address] JESSENIA MCDOWELL [address] [place] [address] Operative/Delivery Room Report SEX: F AGE: 76 : 1940 SURGERY DATE: 03/26/2017 SURGEON: Anthony Mcghee MD PREOPERATIVE DIAGNOSES: Right comminuted intertrochanteric hip fracture, and osteoporosis. POSTOPERATIVE DIAGNOSES: Right comminuted intertrochanteric hip fracture, and osteoporosis. PROCEDURE: Right hip trochanteric fixation nail. We used a short [employer]ynthe[employer] nail 12-mm in diameter, 130 degree neck angle with a 90-mm helical blade, and a 34-mm distal locking screw. MANUFACTURING ENGINEER SUPERVISOR: BOB Constantino ANESTHESIA: General. ESTIMATED BLOOD LOSS: 50 mL. COMPLICATIONS: None. CONDITION: Fair to recovery room. INDICATIONS: The patient is a 76-year-old female with multiple medical problems, fell at home last p.m. injuring her right hip. She was brought to the emergency room. X-rays were obtained. She was found to have right intertrochanteric hip fracture. She was then admitted by primary care. We were asked to consult on her. We discussed her injury as well as treatment options. At this point, she wants to proceed with surgical treatment. We talked about doing a trochanteric fixation nail. We discussed the procedure as well as risks and benefits with her at length, and she would like to go and proceed at this point. DESCRIPTION OF PROCEDURE: After informed consent was obtained, the patient was taken to the operating room, placed on the operating table in supine position. General anesthetic was administered. She was transferred to the fracture table with the left lower extremity in a well leg moss, right lower extremity in traction boot. We were then able to perform a closed reduction of the fracture. Once this was completed, the right hip was prepped and draped in usual sterile fashion. Using fluoroscopic guidance, we localized the tip of the greater trochanter. We then made an incision just proximal to this through the skin and subcutaneous tissues through the IT band and tensor fascia. We then dissected down bluntly to the tip of the greater trochanter. Hemostasis was maintained using Bovie electrocautery. Once we identified the tip of the greater trochanter, we placed a guidewire into the proximal femur from the tip of the greater trochanter and this was noted to be in good position both AP and lateral views. Once this was confirmed, we then reamed proximally with a 17-mm proximal reamer. We then removed the reamer as well ADMIT: 03/26/2017 RM/LOC: 306 [facility] MR#: [id number] [address] [address] JESSENIA MCDOWELL [address] [place] [address] Operative/Delivery Room Report SEX: F AGE: 76 : 1940 as the guidewire. We then elected to use a 12-mm diameter trochanteric fixation nail with 130 degree neck angle, placed this into the proximal femur under fluoroscopic guidance. This was noted be in excellent position on both AP and lateral views. Once this was completed, this was in good position. We then placed the guide for the helical blade. I made a second stab incision distally. The guide was then placed on the lateral cortex of the femur. We then used a guidewire, placed this into the femoral head, and it was noted to be in excellent position both AP and lateral views. A little bit inferior on the AP view and slightly posterior on the lateral view. Once this was in good position, we then measured off the guidewire and elected to use a 90-mm helical blade. We then reamed the lateral cortex with lateral cortex reamer followed by the step reamer set to 90. Once this was completed, we then placed a 90-mm helical blade over the guidewire and seated this using light mallet taps. Once this was fully seated, we then locked this engaging the proximal locking mechanism. Once this was completed AP and lateral fluoroscopic view showed that the fracture appeared to be well reduced and the TFN was in good position. We then placed the guide for the distal locking screw. We made a third stab incision distally, placed this on the lateral cortex of the femur, drilled, measured, and placed a 34-mm distal locking screw. Once this was completed, the nail inserting arm was then removed. We took AP and lateral fluoroscopic views of the hip noting that the TFN was in good position. The fracture was well reduced at this point. We then copiously irrigated the wounds. Deep tissue in the proximal wound was closed using 0 Vicryl in a [id number] fashion, subcutaneous tissues and all 3 wounds were then closed using 2-0 Vicryl in simple interrupted fashion. Skin was closed using skin neno. A sterile compressive dressing was then applied consisting of Xeroform, plain gauze, ABDs, Medipore tape. The patient was then taken off the fracture table, and transferred to recovery room in fair condition. Anthony Mcghee MD/ sarah JOB #: [id number] CC: Julian Malone, Attending Physician Julian Malone, Family Physician
[2017-04-02] MEDS ORDERED: DUONEB DPS3 ML IH (08:56)
[2017-04-02] MEDS ORDERED: DULCOLAX-DPS10 MG PR ×2 (08:56→09:04)
[2017-04-02] MEDS ORDERED: HYDROCODON-ACE1 EAC4 PO (08:56)
[2017-04-02] MEDS ORDERED: ATIVAN-DPS1 MG PO (08:56)
[2017-04-02] MEDS ORDERED: CRESTOR10 MG PO (08:56)
[2017-04-02] MEDS ORDERED: MAALOX DPS30 ML PO (08:57)
[2017-04-02] MEDS ORDERED: NITROSTAT0.4 MG SL (08:57)
[2017-04-02] MEDS ORDERED: MILK OF MA400 MG/5 M PO (08:57)
[2017-04-02] MEDS ORDERED: THERAPEUTIC MUL1 TAB PO (08:58)
[2017-04-02] MEDS ORDERED: PLAVIX75 MG PO (08:58)
[2017-04-02] MEDS ORDERED: SENOKOT-S TABL1 EACH PO (08:58)
[2017-04-02] MEDS ORDERED: TYLENOL DPS325 MG PO (08:59)
[2017-04-02] MEDS ORDERED: ULTRAM DPS50 MG PO (08:59)
[2017-04-02] MEDS ORDERED: XALATAN2.5 ML OU (08:59)
[2017-04-02] MEDS ORDERED: IRON325 M1 PO (09:00)
[2017-04-02] MEDS ORDERED: NORVASC5 MG PO (09:00)
[2017-04-02] MEDS ORDERED: ZINC50 M1 PO (09:00)
[2017-04-02] MEDS ORDERED: LEVAQUIN DPS500 MG PO (09:01)
[2017-04-02] MEDS ORDERED: TYLENOL WITH C1 EACH PO (09:01)
[2017-04-02] MEDS ORDERED: PEPCID DPS20 MG PO (09:02)
[2017-04-02] MEDS ORDERED: LOVENOX DP30 MG/0.3 SQ (09:03)
[2017-04-02] MEDS ORDERED: COLACE-DPS100 MG PO (09:03)
[2017-04-02] MEDS ORDERED: FLEET ENEMA133 ML PR (09:04)
== END 2017-03-31 11:48 | DRG 480 ==
LOC: ER 01:20 → 3ICU 02:32 → 5MS 02:32 → 3ICU 16:24 → 5MS 03-30 21:40
PROVIDERS: ADMIT Family Medicine
PROC: 0QS634Z Reposition Right Upper Femur with Internal Fixation Device, Percutaneous Approach (ICD-10-PCS; principal; 2017-03-26)
DX: M80.851A Other osteoporosis with current pathological fracture, right femur, initial encounter for fracture (principal); J96.21 Acute and chronic respiratory failure with hypoxia; L89.152 Pressure ulcer of sacral region, stage 2; L89.310 Pressure ulcer of right buttock, unstageable; J18.9 Pneumonia, unspecified organism; E46 Unspecified protein-calorie malnutrition; L89.321 Pressure ulcer of left buttock, stage 1; E87.70 Fluid overload, unspecified; J44.9 Chronic obstructive pulmonary disease, unspecified; D63.8 Anemia in other chronic diseases classified elsewhere; S50.311A Abrasion of right elbow, initial encounter; I65.23 Occlusion and stenosis of bilateral carotid arteries; W19.XXXA Unspecified fall, initial encounter; I25.10 Atherosclerotic heart disease of native coronary artery without angina pectoris; E78.5 Hyperlipidemia, unspecified; I73.9 Peripheral vascular disease, unspecified; K21.9 Gastro-esophageal reflux disease without esophagitis; F17.210 Nicotine dependence, cigarettes, uncomplicated; N18.2 Chronic kidney disease, stage 2 (mild); I12.9 Hypertensive chronic kidney disease with stage 1 through stage 4 chronic kidney disease, or unspecified chronic kidney disease; S80.811A Abrasion, right lower leg, initial encounter; S50.312A Abrasion of left elbow, initial encounter; I95.81 Postprocedural hypotension; D64.9 Anemia, unspecified; Z85.528 Personal history of other malignant neoplasm of kidney; Z90.5 Acquired absence of kidney